=== PATIENT | female | born 1990 | race Caucasian/White ===

== ENCOUNTER 2018-09-15 12:35 | Day surgery (SDC) | payer OTHER ==
[2018-09-15 13:19] VITALS: BP 119/78
[2018-09-15 14:26] LABS: #Basophils 0.1 thou/uL (0.0-0.2); #Eosinphils 0.1 thou/uL (0.0-0.7); #Lymphocytes 1.3 thou/uL (1.20-3.40); #Monocytes 0.5 thou/uL (0.11-0.59); #Neutrophils 4.7 thou/uL (1.40-6.50); %Basophils 1.1 % (0.0-1.0); %Eosinophils 1.5 % (0.0-10.0); %Lymphocytes 19.3 % (21.0-51.0); %Monocytes 7.5 % (0.0-10.0); %Neutrophils 70.7 % (42.0-75.0); Hemoglobin 13.1 g/dL (12.0-16.0); Mean Corpuscular HGB CONC 34.1 g/dL (32.0-36.0); Mean Corpuscular Hemoglobin 28.1 pg (27.0-31.0); Mean Corpuscular Volume 82.4 fL (78.0-98.0); Mean Platelet Volume 8.7 fL (7.4-10.4); Platelet Count 260 thou/uL (130-400); RBC Distribution Width 12.1 % (11.5-14.5); Red Blood Cell (RBC) Count 4.64 mill/uL (4.20-5.40); White Blood Cell (WBC) Count 6.6 thou/uL (4.8-10.8)
[2018-09-15 14:48] LABS: ALT (SGPT) 17 U/L (8-55); AST (SGOT) 19 U/L (5-34); Albumin 3.1 g/dL (3.5-5.0); Alkaline Phosphatase 154 U/L (40-150); Anion Gap 13 mmol/L (10-20); BUN (Urea Nitrogen) 9 mg/dL (7.0-18.7); Bilirubin, Total 0.4 mg/dL (0.2-1.2); Calc. Creatinine Clearance 207 mL/min (70-130); Calcium 9.6 mg/dL (7.8-10.44); Carbon Dioxide 21 mmol/L (22-29); Chloride 104 mmol/L (98-107); Estimated GFR-MDRD Greater than 90; Glucose 65 mg/dL (70-105); Potassium 3.9 mmol/L (3.5-5.1); Protein, Total 6.1 g/dL (6.0-8.3); Sodium 134 mmol/L (136-145)
== END 2018-09-15 17:30 | disposition home or self-care (01) ==
LOC: L&D/OP 12:35
PROVIDERS: ATTEND Family Medicine
DX: O13.3 Gestational [pregnancy-induced] hypertension without significant proteinuria, third trimester (principal); O99.820 Streptococcus B carrier state complicating pregnancy; Z3A.39 39 weeks gestation of pregnancy
CPT/HCPCS: 36415; 80053; 81003; 82570; 85025; 99284

== ENCOUNTER 2018-09-16 09:02 | Inpatient (IN) | payer OTHER ==
[2018-09-16 09:38] VITALS: BMI 37.3
[2018-09-16] MEDS ORDERED: Fentanyl 4 mcg/Bup 0.1% Cadd 0 ML ONE (11:04)
[2018-09-16] MEDS ORDERED: NS / Oxytocin 40 units/1000ml 1,000 ML ONE (11:22)
[2018-09-16] MEDS ORDERED: Lidocaine 1% (PF) 30 ML VIAL ONE (11:22)
[2018-09-16] MEDS ORDERED: Milk Of Magnesia 30 ML UDCUP PO PRN (11:57)
[2018-09-16] MEDS ORDERED: Lactated Ringer's 1,000 ML IV SCH (11:57)
[2018-09-16] MEDS ORDERED: Promethazine HCl 25 MG/ML VIAL IM PRN (11:57)
[2018-09-16] MEDS ORDERED: Butorphanol Tartrate 1 MG/ML VIAL SLOW IVP PRN (11:57)
[2018-09-16] MEDS ORDERED: Lanolin Ointment 7 GM TUBE TOP PRN (11:57)
[2018-09-16] MEDS ORDERED: Ondansetron PF 4 MG/2 ML Vial IVP PRN ×2 (11:57)
[2018-09-16] MEDS ORDERED: NS / Oxytocin 40 units/1000ml 1,000 ML IV PRN (11:57)
[2018-09-16] MEDS ORDERED: NS w/ Oxytocin 10 units 500 ML IV SCH (11:57)
[2018-09-16] MEDS ORDERED: Bisacodyl 10 MG SUPP PR PRN (11:57)
[2018-09-16] MEDS ORDERED: Benzocaine/Menthol 20-0.5% 60 ML CAN TOP PRN (11:57)
[2018-09-16] MEDS ORDERED: Lidocaine 1% (PF) 30 ML VIAL SC PRN (11:57)
[2018-09-16] MEDS ORDERED: NS / Oxytocin 40 units/1000ml 1,000 ML IV SCH (12:00)
[2018-09-16 13:08] LABS: Hemoglobin 14.1 g/dL (12.0-16.0); Mean Corpuscular Hemoglobin 27.5 pg (27.0-31.0); Mean Corpuscular Volume 83.1 fL (78.0-98.0); Mean Platelet Volume 8.8 fL (7.4-10.4); Platelet Count 265 thou/uL (130-400); RBC Distribution Width 12.1 % (11.5-14.5); Red Blood Cell (RBC) Count 5.15 mill/uL (4.20-5.40); White Blood Cell (WBC) Count 9.2 thou/uL (4.8-10.8)
[2018-09-16 13:18] LABS: Syphilis Antibody Nonreactive (Nonreactive); Syphilis Antibody Index 0.05 S/CO (<1.00 Non-Reactive)
[2018-09-16] MEDS: Ibuprofen 800 MG TAB PO SCH ×2 (13:22→22:32)
[2018-09-16 14:57] LABS: Hep B Surf Ag Non-Reactive S/CO (NonReactive)
[2018-09-16] MEDS: Lactated Ringer's 1,000 ML IV SCH (16:29)
[2018-09-16] MEDS: HYDROcodone/Acetaminophen 5/325 mg Tablet PO PRN (16:33)
[2018-09-16] MEDS: Ferrous Sulfate 325 MG TAB PO SCH (17:56)
[2018-09-16] MEDS: Docusate Calcium (SURFAK) 240 MG CAP PO SCH (22:32)
[2018-09-17] MEDS: Lactated Ringer's 1,000 ML IV SCH ×4 (06:06→21:53)
[2018-09-17] MEDS: Ibuprofen 800 MG TAB PO SCH ×3 (06:31→21:51)
[2018-09-17 07:45] LABS: Hemoglobin 11.9 g/dL (12.0-16.0); Mean Corpuscular HGB CONC 33.4 g/dL (32.0-36.0); Mean Corpuscular Hemoglobin 27.9 pg (27.0-31.0); Mean Corpuscular Volume 83.6 fL (78.0-98.0); Mean Platelet Volume 8.6 fL (7.4-10.4); Platelet Count 239 thou/uL (130-400); RBC Distribution Width 12.1 % (11.5-14.5); Red Blood Cell (RBC) Count 4.26 mill/uL (4.20-5.40); White Blood Cell (WBC) Count 7.9 thou/uL (4.8-10.8)
[2018-09-17] MEDS: HYDROcodone/Acetaminophen 5/325 mg Tablet PO PRN ×2 (08:13→20:24)
[2018-09-17] MEDS: Prenatal Vitamin 1 TAB PO SCH (08:13)
[2018-09-17] MEDS: Docusate Calcium (SURFAK) 240 MG CAP PO SCH ×2 (08:14→21:51)
[2018-09-17] MEDS: Ferrous Sulfate 325 MG TAB PO SCH ×2 (08:29→18:14)
[2018-09-18] MEDS: Ibuprofen 800 MG TAB PO SCH ×2 (06:28→14:56)
[2018-09-18 08:16] VITALS: BP 128/85; TEMP 98.3
[2018-09-18] MEDS: Docusate Calcium (SURFAK) 240 MG CAP PO SCH (09:47)
[2018-09-18] MEDS: Ferrous Sulfate 325 MG TAB PO SCH (09:48)
[2018-09-18] MEDS: Prenatal Vitamin 1 TAB PO SCH (09:48)
[2018-09-18] MEDS: HYDROcodone/Acetaminophen 5/325 mg Tablet PO PRN ×2 (09:50→14:55)
[2018-09-18] MEDS: Lactated Ringer's 1,000 ML IV SCH (14:56)
== END 2018-09-18 19:43 | disposition home or self-care (01) | DRG 806 ==
LOC: L&D/OP 09:02 → L&D 11:40 → 3SE 14:56
PROVIDERS: ADMIT Family Medicine; ATTEND Family Medicine
PROC: 0HQ9XZZ Repair Perineum Skin, External Approach (ICD-10-PCS; principal; 2018-09-16)
PROC: 10E0XZZ Delivery of Products of Conception, External Approach (ICD-10-PCS; 2018-09-16)
DX: O13.3 Gestational [pregnancy-induced] hypertension without significant proteinuria, third trimester (principal); O98.813 Other maternal infectious and parasitic diseases complicating pregnancy, third trimester; Z37.0 Single live birth; O70.0 First degree perineal laceration during delivery; Z3A.39 39 weeks gestation of pregnancy; B95.1 Streptococcus, group B, as the cause of diseases classified elsewhere
CPT/HCPCS: 36415; 80053; 81003; 82570; 85025; 85027; 86780; 86850; 86900; 86901; 87340; 88307; 99284; 99285; J2001